=== PATIENT | female | born 1970 | race Caucasian/White ===

== ENCOUNTER → 2016-05-11 | Outpatient (CLI) | payer BC ==
--- NOTE | 2016-05-12 09:42 | MM ---
Reason for exam: screening (asymptomatic). Last mammogram was performed 1 year and 2 months ago. History: Patient had first child at age 30. Family history of breast cancer in maternal grandmother. Physical Findings: A clinical breast exam by your physician is recommended on an annual basis and results should be correlated with mammographic findings. MG 3D Screening Mammo W/Cad Bilateral CC and MLO view(s) were taken. Prior study comparison: March 03, 2015, bilateral MG 3d screening mammo w/cad. December 07, 2013, bilateral MG screening mammo w CAD. The breast tissue is extremely dense which could obscure a lesion on mammography. No significant changes when compared with prior studies. ASSESSMENT: Benign, BI-RAD 2 RECOMMENDATION: Routine screening mammogram of both breasts in 1 year.
== END | disposition home or self-care (01) ==
LOC: RADMAMWWP 11:28
PROVIDERS: ATTEND Obstetrics & Gynecology
DX: Z12.31 Encounter for screening mammogram for malignant neoplasm of breast (principal)
CPT/HCPCS: 77063; G0202

== ENCOUNTER 2017-01-14 13:50 | Emergency (ER) | payer BC ==
[2017-01-14 14:46] LABS: Basophils % (A) 0 %; CH 27.9; CHCM 31.5; Eosinophils # (A) 0.1 k/uL (0-0.7); Eosinophils % (A) 1 %; HCT 43.4 % (34.0-46.0); HDW 2.26; HGB 13.3 gm/dL (11.4-16.0); Luc # (Auto) 0.19; Luc % (Auto) 2; Lymphocytes % (A) 26 %; MCH 27.4 pg (25.0-35.0); MCHC 30.6 g/dL (31.0-37.0); MCV 89.3 fL (80.0-100.0); Mean Platelet Volume 8.1; Monocytes # (A) 0.5 k/uL (0-1.0); Monocytes % (A) 6 %; Neutrophils # (A) 4.9 k/uL (1.3-7.7); Neutrophils % (A) 64 %; RBC 4.86 m/uL (3.80-5.40); RDW 14.9 % (11.5-15.5); WBC 7.6 k/uL (3.8-10.6); WBC (Perox) 7.84
--- NOTE | 2017-01-14 14:55 | XR ---
EXAMINATION TYPE: XR chest 2V DATE OF EXAM: 01/14/2017 COMPARISON: NONE TECHNIQUE: PA and lateral views submitted. HISTORY: Pain FINDINGS: The lungs are clear and there is no pneumothorax, pleural effusion, or focal pneumonia. Degenerativ e change of the spine. IMPRESSION: 1. No acute process.
[2017-01-14 14:59] LABS: ALT 24 U/L (9-52); AST 23 U/L (14-36); Alkaline Phosphatase 75 U/L (38-126); Anion Gap 10 mmol/L; Blood Urea Nitrogen 8 mg/dL (7-17); Calcium 9.9 mg/dL (8.4-10.2); Carbon Dioxide 21 mmol/L (22-30); Chloride 107 mmol/L (98-107); Glucose 94 mg/dL (74-99); Non-African American GFR(MDRD) >60 (>60 ml/min/1.73 sqM); Potassium 4.1 mmol/L (3.5-5.1); Sodium 138 mmol/L (137-145); Total Bilirubin 0.3 mg/dL (0.2-1.3); Total Protein 7.9 g/dL (6.3-8.2)
[2017-01-14 15:11] VITALS: RESP 18
[2017-01-14 15:14] LABS: Creatine Kinase 105 U/L (30-135)
[2017-01-14 15:26] LABS: Creatine Kinase MB 0.5 ng/mL (0.0-2.4); Troponin I <0.012 ng/mL (0.000-0.034)
[2017-01-14 16:23] VITALS: BP 140/78; PULSE 68; TEMP 99
[2017-01-14] MEDS ORDERED: ASPIRIN 325 MG TAB PO STA (16:54)
--- NOTE | 2017-01-14 16:57 | ED ---
General Adult HPI - General Chief complaint: Chest Pain Stated complaint: chest pain-sent by simfy Time Seen by Provider: 01/14/17 14:09 Source: patient, RN notes reviewed Mode of arrival: wheelchair Limitations: no limitations - History of Present Illness Initial comments: 46-year-old female with known history of coronary artery disease presents with a three-day history of left-sided chest pain. Patient states his pain is deep, describes it as a pressure. Radiates into her left shoulder and arm pit. Patient has remote history of tobacco use. Denies any nausea or vomiting. Denies any diaphoresis. Pain has been constant for 3 days. Patient has a family history of coronary artery disease including her mother who at the age of 55. Patient is not currently on any medications. - Related Data Home Medications Medication Instructions Recorded Confirmed Albuterol Inhaler [Ventolin Hfa 1 - 2 puff INHALATION RT-QID PRN 01/14/17 Inhaler] Ferrous Sulfate [Slow Fe] 142 mg PO DAILY 01/14/17 01/14/17 Allergies Allergy/AdvReac Type Severity Reaction Status Date / Time No Known Allergies Allergy Verified 01/14/17 14:36 Review of Systems ROS Statement: Those systems with pertinent positive or pertinent negative responses have been documented in the HPI. ROS Other: All systems not noted in ROS Statement are negative. Past Medical History Past Medical History: Asthma History of Any Multi-Drug Resistant Organisms: None Reported Past Surgical History: Section Additional Past Surgical History / Comment(s): 3 c sections Past Psychological History: No Psychological Hx Reported Smoking Status: Never smoker Past Alcohol Use History: None Reported, Rare Past Drug Use History: None Reported General Exam Limitations: no limitations General appearance: alert, in no apparent distress Head exam: Present: atraumatic, normocephalic Eye exam: Present: normal appearance, PERRL ENT exam: Present: normal exam Neck exam: Present: normal inspection. Absent: tenderness, meningismus Respiratory exam: Present: normal lung sounds bilaterally. Absent: respiratory distress Cardiovascular Exam: Present: regular rate, normal rhythm, normal heart sounds GI/Abdominal exam: Present: soft. Absent: distended, tenderness Extremities exam: Present: normal inspection, normal capillary refill. Absent: pedal edema Neurological exam: Present: alert, oriented X3, CN II-XII intact. Absent: motor sensory deficit Psychiatric exam: Present: normal affect, normal mood Skin exam: Present: warm, dry, intact. Absent: cyanosis, diaphoretic Course Vital Signs 01/14/17 01/14/17 01/14/17 13:52 14:22 15:11 Temperature 99.1 F 98.8 F Pulse Rate 18 L 66 Pulse Rate [ 68 Waste Handling Technician ] Respiratory 65 H 18 Rate Blood Pressure 184/104 133/81 O2 Sat by Pulse 100 96 Oximetry 01/14/17 16:22 Temperature 99.0 F Pulse Rate 68 Pulse Rate [ Waste Handling Technician ] Respiratory 18 Rate Blood Pressure 140/78 O2 Sat by Pulse 97 Oximetry EKG Findings - EKG Comments: EKG Findings:: EKG shows normal sinus rhythm, ventricular rate 62 SC interval 134, QRS duration 88, QTC 414, no ST segment elevation, no T-wave abnormality Medical Decision Making - Medical Decision Making 46-year-old female presents with 3 days of constant chest pressure. Patient does have remote history of tobacco and family history of CAD. Initial troponin is negative. Other laboratory studies are unremarkable. Chest x-ray shows no acute process. EKG is nonischemic. Given the patient's risk factors, I did discuss observation for stroke troponins and cardiology consult. Patient refuses. She would prefer to follow up with her primary care physician. Given the fact her symptoms have been constant for 3 days and her EKG is nonischemic and Troponin was negative, however the patient to be discharged home with outpatient follow-up. She promises me she will return with any change or worsening in her symptoms. She will follow-up the next several days with her primary care physician to arrange outpatient stress test and cardiology follow- up. - Lab Data Result diagrams: 01/14/17 14:25 01/14/17 14:25 Lab Results 01/14/17 01/14/17 01/14/17 Range/Units 14:25 14:25 14:25 WBC 7.6 (3.8-10.6) k/uL RBC 4.86 (3.80-5.40) m/uL Hgb 13.3 (11.4-16.0) gm/dL Hct 43.4 (34.0-46.0) % MCV 89.3 (80.0-100.0) fL MCH 27.4 (25.0-35.0) pg MCHC 30.6 L (31.0-37.0) g/dL RDW 14.9 (11.5-15.5) % Plt Count 282 (150-450) k/uL Neutrophils % 64 % Lymphocytes % 26 % Monocytes % 6 % Eosinophils % 1 % Basophils % 0 % Neutrophils # 4.9 (1.3-7.7) k/uL Lymphocytes # 2.0 (1.0-4.8) k/uL Monocytes # 0.5 (0-1.0) k/uL Eosinophils # 0.1 (0-0.7) k/uL Basophils # 0.0 (0-0.2) k/uL D-Dimer (<0.60) mg/L FEU Sodium 138 (137-145) mmol/L Potassium 4.1 (3.5-5.1) mmol/L Chloride 107 (98-107) mmol/L Carbon Dioxide 21 L (22-30) mmol/L Anion Gap 10 mmol/L BUN 8 (7-17) mg/dL Creatinine 0.72 (0.52-1.04) mg/dL Est GFR (MDRD) Af Amer >60 (>60 ml/min/1.73 sqM) Est GFR (MDRD) Non-Af >60 (>60 ml/min/1.73 sqM) Glucose 94 (74-99) mg/dL Calcium 9.9 (8.4-10.2) mg/dL Total Bilirubin 0.3 (0.2-1.3) mg/dL AST 23 (14-36) U/L ALT 24 (9-52) U/L Alkaline Phosphatase 75 (38-126) U/L Total Creatine Kinase 105 (30-135) U/L CK-MB (CK-2) 0.5 (0.0-2.4) ng/mL CK-MB (CK-2) Rel Index 0.5 Troponin I <0.012 (0.000-0.034) ng/mL Total Protein 7.9 (6.3-8.2) g/dL Albumin 4.5 (3.5-5.0) g/dL 01/14/17 Range/Units 14:25 WBC (3.8-10.6) k/uL RBC (3.80-5.40) m/uL Hgb (11.4-16.0) gm/dL Hct (34.0-46.0) % MCV (80.0-100.0) fL MCH (25.0-35.0) pg MCHC (31.0-37.0) g/dL RDW (11.5-15.5) % Plt Count (150-450) k/uL Neutrophils % % Lymphocytes % % Monocytes % % Eosinophils % % Basophils % % Neutrophils # (1.3-7.7) k/uL Lymphocytes # (1.0-4.8) k/uL Monocytes # (0-1.0) k/uL Eosinophils # (0-0.7) k/uL Basophils # (0-0.2) k/uL D-Dimer 0.29 (<0.60) mg/L FEU Sodium (137-145) mmol/L Potassium (3.5-5.1) mmol/L Chloride (98-107) mmol/L Carbon Dioxide (22-30) mmol/L Anion Gap mmol/L BUN (7-17) mg/dL Creatinine (0.52-1.04) mg/dL Est GFR (MDRD) Af Amer (>60 ml/min/1.73 sqM) Est GFR (MDRD) Non-Af (>60 ml/min/1.73 sqM) Glucose (74-99) mg/dL Calcium (8.4-10.2) mg/dL Total Bilirubin (0.2-1.3) mg/dL AST (14-36) U/L ALT (9-52) U/L Alkaline Phosphatase (38-126) U/L Total Creatine Kinase (30-135) U/L CK-MB (CK-2) (0.0-2.4) ng/mL CK-MB (CK-2) Rel Index Troponin I (0.000-0.034) ng/mL Total Protein (6.3-8.2) g/dL Albumin (3.5-5.0) g/dL Disposition Clinical Impression: Chest pain Disposition: HOME SELF-CARE Instructions: Chest Pain (ED) Referrals: Pedrito Campbell MD [Primary Care Provider] - 1-2 days Time of Disposition: 17:10
== END 2017-01-14 17:16 | disposition home or self-care (01) ==
LOC: EC 13:50
DX: R07.89 Other chest pain (principal); M25.512 Pain in left shoulder; M79.622 Pain in left upper arm; Z87.891 Personal history of nicotine dependence; Z79.899 Other long term (current) drug therapy; Z82.49 Family history of ischemic heart disease and other diseases of the circulatory system
CPT/HCPCS: 36415; 71020; 80053; 82550; 82553; 84484; 85025; 85379; 93005; 99285

== ENCOUNTER → 2017-06-03 | Outpatient (CLI) | payer BC ==
--- NOTE | 2017-06-06 13:36 | MM ---
Reason for exam: screening (asymptomatic). Last mammogram was performed 1 year and 1 month ago. History: Patient had first child at age 30. Family history of breast cancer in maternal grandmother. Physical Findings: A clinical breast exam by your physician is recommended on an annual basis and results should be correlated with mammographic findings. MG 3D Screening Mammo W/Cad Bilateral CC and MLO view(s) were taken. Prior study comparison: May 11, 2016, bilateral MG 3d screening mammo w/cad. March 03, 2015, bilateral MG 3d screening mammo w/cad. The breast tissue is heterogeneously dense. This may lower the sensitivity of mammography. No significant changes when compared with prior studies. ASSESSMENT: Negative, BI-RAD 1 RECOMMENDATION: Routine screening mammogram of both breasts in 1 year.
== END | disposition home or self-care (01) ==
LOC: RADMAMWWP 09:23
PROVIDERS: ATTEND Obstetrics & Gynecology
DX: Z12.31 Encounter for screening mammogram for malignant neoplasm of breast (principal)
CPT/HCPCS: 77063; 77067

== ENCOUNTER → 2018-09-12 | Outpatient (CLI) | payer BC ==
--- NOTE | 2018-09-13 10:51 | MM ---
Reason for exam: screening (asymptomatic). Last mammogram was performed 1 year and 3 months ago. History: Patient had first child at age 30. Family history of breast cancer in maternal grandmother. Physical Findings: A clinical breast exam by your physician is recommended on an annual basis and results should be correlated with mammographic findings. MG 3D Screening Mammo W/Cad Bilateral CC and MLO view(s) were taken. Prior study comparison: June 03, 2017, bilateral MG 3d screening mammo w/cad. May 11, 2016, bilateral MG 3d screening mammo w/cad. The breast tissue is heterogeneously dense. This may lower the sensitivity of mammography. There is no discrete abnormality. No significant changes when compared with prior studies. ASSESSMENT: Negative, BI-RAD 1 RECOMMENDATION: Routine screening mammogram of both breasts in 1 year.
== END | disposition home or self-care (01) ==
LOC: RADMAMWWP 08:54
PROVIDERS: ATTEND Obstetrics & Gynecology
DX: Z12.31 Encounter for screening mammogram for malignant neoplasm of breast (principal)
CPT/HCPCS: 77063; 77067

== ENCOUNTER 2020-02-21 01:56 | Emergency (ER) | payer BC ==
[2020-02-21 02:03] VITALS: TEMP 98.9
[2020-02-21] MEDS ORDERED: HYDROmorphone 1 MG/ML 1 ML SYRINGE IM STA (02:08)
[2020-02-21] MEDS ORDERED: IBUPROFEN 800 MG TAB PO STA (02:08)
[2020-02-21] MEDS ORDERED: ACETAMINOPHEN TAB 500 MG TAB PO STA (02:08)
--- NOTE | 2020-02-21 02:13 | ED ---
Lower Extremity Injury HPI - General Chief Complaint: Extremity Injury, Lower Stated Complaint: RT ankle injury Time Seen by Provider: 02/21/20 02:05 Source: patient, family, RN notes reviewed, old records reviewed Mode of arrival: wheelchair Limitations: language barrier - History of Present Illness Initial Comments: This is a 49-year-old female DF status post trip and fall tonight. Patient had a trip and fall resulting in severe right ankle pain and deformity. Patient has no other injuries from this fall. Patient ER for evaluation regarding the right ankle pain. Blood thinners no other complaints MD Complaint: ankle injury (right) -: hour(s) Injury: Ankle: Right Type of Injury: blunt, inversion Place: home Severity: severe Severity scale (1-10): 10 Improves With: nothing Worsens With: weight bearing, movement, palpation Context: fall, direct blow Associated Symptoms: snap/pop sensation, swelling, unable to bear weight - Related Data Home Medications Medication Instructions Recorded Confirmed Albuterol Inhaler (Mhu) [Ventolin 1 - 2 puff INHALATION RT-QID PRN 01/14/17 01/14/17 Hfa Inhaler] Ferrous Sulfate [Slow Fe] 142 mg PO DAILY 01/14/17 01/14/17 Allergies Allergy/AdvReac Type Severity Reaction Status Date / Time No Known Allergies Allergy Verified 02/21/20 02:03 Review of Systems ROS Statement: Those systems with pertinent positive or pertinent negative responses have been documented in the HPI. ROS Other: All systems not noted in ROS Statement are negative. Past Medical History Past Medical History: Asthma History of Any Multi-Drug Resistant Organisms: None Reported Past Surgical History: Section Additional Past Surgical History / Comment(s): 3 c sections Past Psychological History: No Psychological Hx Reported Smoking Status: Never smoker Past Alcohol Use History: None Reported, Rare Past Drug Use History: None Reported General Exam - General Exam Comments Initial Comments: deformity and dislocation w likely fracture Right ankle Limitations: language barrier General appearance: alert, in no apparent distress Head exam: Present: atraumatic, normocephalic, normal inspection Eye exam: Present: normal appearance, PERRL, EOMI. Absent: scleral icterus, conjunctival injection, periorbital swelling ENT exam: Present: normal exam, mucous membranes moist Neck exam: Present: normal inspection. Absent: tenderness, meningismus, lymphadenopathy Respiratory exam: Present: normal lung sounds bilaterally. Absent: respiratory distress, wheezes, rales, rhonchi, stridor Cardiovascular Exam: Present: regular rate, normal rhythm, normal heart sounds. Absent: systolic murmur, diastolic murmur, rubs, gallop, clicks GI/Abdominal exam: Present: soft, normal bowel sounds. Absent: distended, tenderness, guarding, rebound, rigid Extremities exam: Present: normal inspection, full ROM, normal capillary refill. Absent: tenderness, pedal edema, joint swelling, calf tenderness Back exam: Present: normal inspection Neurological exam: Present: alert, oriented X3, CN II-XII intact Psychiatric exam: Present: normal affect, normal mood Skin exam: Present: warm, dry, intact, normal color. Absent: rash Course Vital Signs 02/21/20 02/21/20 01:59 03:09 Temperature 98.9 F Pulse Rate 114 H 76 Respiratory 18 19 Rate Blood Pressure 182/91 114/84 O2 Sat by Pulse 98 96 Oximetry - Reevaluation(s) Reevaluation #1: medical record is reviewed nausea with pain medication ankle is reduced without difficulty patient has symptoms resolved and feeling better patient is informed of results and ok for discharge Procedures - Orthopedic Fracture Reduction Fracture #1 Consent Obtained: verbal consent Side: right Fracture Reduction Location: tibia, fibula Technique: direct manipulation, traction/counter-traction Post Reduction X-rays Demonstrate: anatomical reduction Post-Reduction Neuro Exam: intact Post-Reduction Vascular Exam: intact Splint Applied: Yes Patient Tolerated Procedure: well - Orthopedic Joint Reduction Joint #1 Consent Obtained: verbal consent Side: right Joint Reduction Location: ankle Technique Used: traction/counter-traction Post-Reduction Neuro Exam: intact Post-Reduction Vascular Exam: intact Post Reduction X-Ray Obtained: Yes Post Reduction X-Ray Results: reduced Splint Applied: Yes Patient Tolerated Procedure: well Medical Decision Making - Medical Decision Making 49 female with fracture dislocation right ankle reduced here in the ER splinted and patient can be discharged home - Radiology Data Radiology results: report reviewed (X-ray right ankle shows low reduced right ankle), image reviewed Disposition Clinical Impression: Fall, Closed right ankle fracture, Dislocation of right ankle joint Disposition: HOME SELF-CARE Condition: Good Instructions (If sedation given, give patient instructions): Ankle Fracture (ED), Ankle Dislocation (ED) Is patient prescribed a controlled substance at d/c from ED?: No Referrals: Pedrito Campbell MD [Primary Care Provider] - 1-2 days
--- NOTE | 2020-02-21 02:26 | XR ---
EXAM: XR Right Ankle Complete, 2 Views CLINICAL HISTORY: ITS.REASON XR Reason: fall TECHNIQUE: Frontal, lateral views of the right ankle. COMPARISON: No relevant prior studies available. FINDINGS: Bones/joints: Oblique fracture of distal fibula with 4 mm posterior displacement. Horizontal fracture of medial malleolus with 3 mm distal displacement. No dislocation. Suspect associated small ankle mortise joint effusion. Subcentimeter accessory ossicle near cuboid Soft tissues: Associated moderate soft tissue swelling. IMPRESSION: 1. Oblique fracture of distal fibula with 4 mm posterior displacement. 2. Horizontal fracture of medial malleolus with 3 mm distal displacement.
[2020-02-21] MEDS ORDERED: Acetaminophen-Codeine 300-30mg TAB PO STA (02:50)
[2020-02-21] MEDS ORDERED: ACET/COD 300 MG/30 MG STARTER PACK 6 TAB BTL PO STA (02:50)
[2020-02-21] MEDS ORDERED: ONDANSETRON ODT 4 MG TAB PO STA (03:01)
[2020-02-21 03:10] VITALS: BP 114/84; PULSE 76; RESP 19
== END 2020-02-21 04:08 | disposition home or self-care (01) ==
LOC: EC 01:56
DX: S82.831A Other fracture of upper and lower end of right fibula, initial encounter for closed fracture (principal); S82.51XA Displaced fracture of medial malleolus of right tibia, initial encounter for closed fracture; J45.909 Unspecified asthma, uncomplicated; Z79.899 Other long term (current) drug therapy; W01.0XXA Fall on same level from slipping, tripping and stumbling without subsequent striking against object, initial encounter; Y92.009 Unspecified place in unspecified non-institutional (private) residence as the place of occurrence of the external cause
CPT/HCPCS: 73600; 99284; 27825; 96372; J1170

== ENCOUNTER → 2020-03-31 | Outpatient (CLI) | payer BC ==
--- NOTE | 2020-03-31 12:51 | BD ---
EXAMINATION TYPE: Axial Bone Density DATE OF EXAM: 03/31/2020 COMPARISON: NONE CLINICAL HISTORY: 49 YR OLD FEMALE.....ICD-10 CODE: N95.1 POST MENOPAUSAL Height: 60 Weight: 115 FRAX RISK QUESTIONS: Glucocorticoids (More than 3mos): YES, ASTHMA (Ex: prednisone, prednisolone, methylprednisolone, dexamethasone, and hydrocortisone). History of Fracture in Adulthood: YES Current Tobacco Use: QUIT 4 YRS AGO RISK FACTORS HISTORY OF: HX OF RT ANKLE FX JAN 2020, WITH SURGICAL REPAIR Active: IN W/C AND WALKING CAST FOR ANKLE RIGHT NOW Postmenopausal woman: YES, AT AGE 46YR OLD Hyperparathyroidism: NO Adrenal Insufficiency: NO MEDICATIONS: Prednisone or other steroids: SEASONAL ASTHMA, INHALERS AND STEROIDS FOR MANY YRS Additional Medications: LOW FE, IRON PILL, STEROIDAL DROPS FOR GLAUCOMA, TUMS , Additional History: LOW IRON, GLAUCOMA, FRACTURE TO RT ANKLE, JAN, 2020 WITH SURG. IN W/C WITH CRUTCH ES EXAM MEASUREMENTS: Bone mineral densitometry was performed using the [employer] System. Bone mineral density as measured about the Lumbar spine is: ----- L1-L4(G/cm2): 0.777 T Score Values are as follows: ----- L1: -2.3 ----- L2: -3.2 ----- L3: -4.0 ----- L4: -3.9 ----- L1-L4: -3.4 Bone mineral density FIRST BONE DENSITY......BASELINE STUDY Bone mineral density about the R hip (g/cm2): 0.735 Bone mineral density about the L hip (g/cm2): 0.793 T Score values are as follows: -----R Neck: -1.8 -----L Neck: -1.9 -----R Total: -2.2 -----L Total: -1.7 Bone mineral density FIRST BONE DENSITY....BASELINE STUDY FRAX%s: THERE IS A 15.3% CHANCE FOR A MAJOR OSTEOPOROTIC FX AND A 2.6% FOR HIP....PROBABILITY FOR F X IN 10 YRS TIME IMPRESSION: Osteopenia NOTE: T-SCORE=SD OF THE YOUNG ADULT MEAN.
--- NOTE | 2020-04-01 09:52 | MM ---
Reason for exam: screening (asymptomatic). Last mammogram was performed 1 year and 7 months ago. History: Patient had first child at age 30. Family history of breast cancer in maternal grandmother. Physical Findings: A clinical breast exam by your physician is recommended on an annual basis and results should be correlated with mammographic findings. MG 3D Screening Mammo W/Cad Bilateral CC and MLO view(s) were taken. Prior study comparison: September 12, 2018, bilateral MG 3d screening mammo w/cad. June 03, 2017, bilateral MG 3d screening mammo w/cad. The breast tissue is heterogeneously dense. This may lower the sensitivity of mammography. There is no discrete abnormality. No significant changes when compared with prior studies. ASSESSMENT: Negative, BI-RAD 1 RECOMMENDATION: Routine screening mammogram of both breasts in 1 year.
== END | disposition home or self-care (01) ==
LOC: RADMAMWWP 09:42
PROVIDERS: ATTEND Obstetrics & Gynecology
DX: Z12.31 Encounter for screening mammogram for malignant neoplasm of breast (principal); M85.80 Other specified disorders of bone density and structure, unspecified site
CPT/HCPCS: 77063; 77067; 77080

== ENCOUNTER → 2021-04-09 | Outpatient (CLI) | payer BC ==
--- NOTE | 2021-04-13 09:20 | MM ---
Reason for exam: screening (asymptomatic). Last mammogram was performed 1 year ago. History: Patient had first child at age 30. Family history of breast cancer in maternal grandmother. Physical Findings: A clinical breast exam by your physician is recommended on an annual basis and results should be correlated with mammographic findings. MG 3D Screening Mammo W/Cad Bilateral CC and MLO view(s) were taken. Prior study comparison: March 31, 2020, bilateral MG 3d screening mammo w/cad. September 12, 2018, bilateral MG 3d screening mammo w/cad. The breast tissue is heterogeneously dense. This may lower the sensitivity of mammography. No significant changes when compared with prior studies. ASSESSMENT: Benign, BI-RAD 2 RECOMMENDATION: Routine screening mammogram of both breasts in 1 year.
== END | disposition home or self-care (01) ==
LOC: RADMAMWWP 11:56
PROVIDERS: ATTEND Obstetrics & Gynecology
DX: Z12.31 Encounter for screening mammogram for malignant neoplasm of breast (principal); Z80.3 Family history of malignant neoplasm of breast
CPT/HCPCS: 77063; 77067

== ENCOUNTER → 2021-04-30 | Outpatient (CLI) | payer BC ==
--- NOTE | 2021-05-01 07:23 | US ---
EXAMINATION TYPE: US abdomen complete DATE OF EXAM: 04/30/2021 COMPARISON: NONE CLINICAL HISTORY: K85.80 OTHER ACUTE PANCREATITIS WITHOUT NECROSIS O. EXAM MEASUREMENTS: Liver Length: 10.5 cm Gallbladder Wall: 0.2 cm CBD: 0.5 cm Spleen: 7.5 cm Right Kidney: 9.9 x 3.5 x 4.5 cm Left Kidney: 9.1 x 4.1 x 4.3 cm Pancreas: portions visualized wnl Liver: hyperechoic area measuring 2.2 x 1.6 x 1.9cm Gallbladder: several echogenic foci appears to be attached to chan, largest measuring 0.6 x 0.4 x 0. 4cm Evidence for sonographic Osborn's sign: no CBD: wnl Spleen: wnl Right Kidney: wnl Left Kidney: several parapelvic cysts noted largest measuring 1.6 x 1.0 x 1.3cm Upper IVC: wnl Abd Aorta: mostly obscured by overlying bowel gas. The intrahepatic portion of the IVC and proximal abdominal aorta are within normal limits. Common bi le duct is unremarkable. The visualized portions of the pancreas are homogenous. The spleen is unre markable. Kidneys are symmetric and free of hydronephrosis. IMPRESSION: 1. Renal parapelvic cysts on the left. 2. Cholelithiasis. 3. Possible hemangioma which can be confirmed with CT.
== END | disposition home or self-care (01) ==
LOC: RADUSWWP 16:07
PROVIDERS: ATTEND Internal Medicine
DX: K80.20 Calculus of gallbladder without cholecystitis without obstruction (principal); N94.89 Other specified conditions associated with female genital organs and menstrual cycle
CPT/HCPCS: 76700

== ENCOUNTER → 2021-05-13 | Outpatient (CLI) | payer BC ==
--- NOTE | 2021-05-13 09:35 | NM ---
EXAMINATION TYPE: NM hepatobiliary w EF DATE OF EXAM: 05/13/2021 COMPARISON: NONE HISTORY: K80.20 Gallstones TECHNIQUE: After the intravenous administration of 4.7 mCi Tc 99m Mebrofenin hepatobiliary scintigrap hy is performed. Immediate images post injection. FINDINGS: There is satisfactory initial accumulation of tracer by the liver. The gallbladder is visualized wit hin 10 minutes. The small bowel activity is noted within 22 minutes. At one hour 8 ounces of oral e nsure plus is given to mimic CCK and gallbladder ejection fraction is calculated at 15%. IMPRESSION: Diminished gallbladder ejection fraction may reflect chronic cholecystitis and/or biliary dyskinesia.
== END | disposition home or self-care (01) ==
LOC: RADNMMAIN 07:01
PROVIDERS: ATTEND Internal Medicine
DX: K80.20 Calculus of gallbladder without cholecystitis without obstruction (principal)
CPT/HCPCS: 78226; A9537

== ENCOUNTER 2021-05-27 06:19 | Day surgery (SDC) | payer BC ==
[2021-05-22 14:56] VITALS: BMI 27.0
[~2021-05-27 06:19] MED LIST: LACTATED RINGERS 1,000 ML IV SCH
[2021-05-27 06:52] VITALS: TEMP 97.4
[2021-05-27] MEDS ORDERED: PROPOFOL 10 MG/ML 20 ML VIAL IV ONE (07:02)
--- NOTE | 2021-05-27 07:22 | P.PCN ---
Date of Procedure: 05/27/21 Procedure(s) Performed: Brief history: Patient is a pleasant 50-year-old female scheduled for an elective upper endoscopy as well as colonoscopy as a part of evaluation of GERD and screening for colon cancer. Procedure performed: Esophagogastroduodenoscopy with biopsy Colonoscopy Preoperative diagnosis: GERD Screening for colon cancer Anesthesia: [facility] [place] Procedure: After informed consent was obtained from the patient was brought into the endoscopy unit and IV sedation was administered by anesthesia under continuous monitoring. Initially upper endoscopy was done. The Olympus GF 160 video endoscope was inserted inserted into the mouth and esophagus intubated without any difficulty and was gradually advanced into the stomach and duodenum and carefully examined. The bulb and second part of the duodenum appeared normal. The scope was then withdrawn into the stomach adequately insufflated with air and upon careful examination the antrum had patchy areas of erythema which was biopsied. The body, cardia and fundus appeared normal. The scope was then withdrawn into the esophagus. The GE junction was located at 36 cm to the incisors. small hiatal hernia noted. It appeared regular withsuperficial erosions at the distal esophagus consistent with LA grade B reflux esophagitis.Rest of the esophagus appeared normal. Patient tolerated the procedure well. At this time the patient continued to remain sedation. Initial digital rectal examination was normal. Olympus CF 160 video colonoscope was then inserted into the rectum and gradually advanced to the cecum without any difficulty. Careful examination was performed as the scope was gradually being withdrawn. The prep was excellent. The cecum, ascending colon, transverse colon, descending colon, sigmoid colon and rectum appeared normal. Retroflexion was performed in the rectum and no lesions were noted. Patient tolerated the procedure well. Impression: 1. Upper endoscopy revealed LA grade B reflux esophagitis, small hiatal hernia and mild antral gastritis 2. Colonoscopy was within normal limits with no evidence of colorectal neoplasia Recommendations: Findings of this examination were discussed with the patient as well as her family. she was advised to follow with the biopsy results. She'll be started on omeprazole 20 mg daily and was advised to take it half hour before breakfast and follow antireflux measures. She can have a repeat screening colonoscopy in 10 years.
[2021-05-27 07:48] VITALS: BP 137/89; PULSE 87; RESP 16
== END 2021-05-27 08:42 | disposition home or self-care (01) ==
LOC: ORWHC2ENDO 06:19
PROVIDERS: ATTEND Internal Medicine Gastroenterology
DX: K21.00 Gastro-esophageal reflux disease with esophagitis, without bleeding (principal); K29.50 Unspecified chronic gastritis without bleeding; K44.9 Diaphragmatic hernia without obstruction or gangrene; Z12.11 Encounter for screening for malignant neoplasm of colon
CPT/HCPCS: 43239; 88305; G0121; J2704

== ENCOUNTER → 2021-07-02 | Outpatient (CLI) | payer BC ==
--- NOTE | 2021-07-02 09:14 | CT ---
EXAMINATION TYPE: CT abdomen wo/w con DATE OF EXAM: 07/02/2021 COMPARISON: Ultrasound 04/30/2021 HISTORY: Hemangioma CT DLP: 782.7 mGycm CONTRAST: CT scan of the abdomen is performed with Oral Contrast and without and with IV Contrast, patient inje cted with 100 mL of Isovue 300. FINDINGS: LUNG BASES-: No visible nodule. No infiltrate. LIVER/GB: No calcified gallstones. There is an enhancing mass at the dome of the liver posterior se gment right hepatic lobe which measures 3.5 x 3.3 cm. There is central linear area of decreased atten uation. Delayed images demonstrate complete fill in and the mass is compatible with a hemangioma. No additional masses are seen at this time. Biliary tree is of normal caliber. PANCREAS: No inflammation. No distinct mass. SPLEEN: No splenic enlargement. No lesion seen. ADRENALS: No nodule. No thickening. KIDNEYS/BLADDER: No hydronephrosis. No nephrolithiasis. No distinct renal mass. Urinary bladder g rossly unremarkable. BOWEL: Visualized bowel loops appear to be of normal caliber. LYMPH NODES: No greater than 1cm abdominal or pelvic lymph nodes are appreciated. AORTA: No significant abnormality. OSSEOUS STRUCTURES: No significant abnormality is seen. OTHER: No significant additional abnormality is seen. IMPRESSION: 1. Confirmation of the hepatic hemangioma.
== END | disposition home or self-care (01) ==
LOC: RADCTMAIN 07:54
PROVIDERS: ATTEND Internal Medicine
DX: D18.03 Hemangioma of intra-abdominal structures (principal)
CPT/HCPCS: 74170; Q9967

== ENCOUNTER → 2022-05-25 | Outpatient (CLI) | payer BC ==
--- NOTE | 2022-05-25 10:57 | BD ---
EXAMINATION TYPE: Axial Bone Density DATE OF EXAM: 05/25/2022 CLINICAL HISTORY: 51 years old Female. ICD-10 CODE: M85.88 OSTEOPENIA Comparison: Prior bone scan March 31, 2020 Height: 57.5 Weight: 127 FRAX RISK QUESTIONS: History of Fracture in Adulthood: yes rt ankle 2020 Secondary Osteoporosis: no Rheumatoid Arthritis: no RISK FACTORS HISTORY OF: Family History of Osteoporosis: no Active: yes Diet low in dairy products/other sources of calcium: yes Postmenopausal woman: yes Lost more than 2 inches in height since high school: no Frequent falls: no Poor Health: no MEDICATIONS: Additional Medications: yes cholesterol, reflux EXAM MEASUREMENTS: Bone mineral densitometry was performed using the [employer] System. Bone mineral density as measured about the Lumbar spine is: ----- L1-L4(G/cm2): 0.789 T Score Values are as follows: ----- L1: -2.4 ----- L2: -3.6 ----- L3: -2.9 ----- L4: -4.0 ----- L1-L4: -3.3 Z Score Values are as follows: ----- L1: -1.6 ----- L2: -2.8 ----- L3: -2.0 ----- L4: -3.2 ----- L1-L4: -2.4 Bone mineral density has: Increased 1.5% since study of: 03/31/2020 Bone mineral density about the R hip (g/cm2): 0.742 Bone mineral density about the L hip (g/cm2): 0.791 T Score values are as follows: -----R Neck: -1.9 -----L Neck: -2.2 -----R Total: -2.1 -----L Total: -1.7 Z Score values are as follows: -----R Neck: -0.9 -----L Neck: -1.1 -----R Total: -1.4 -----L Total: -1.0 Bone mineral density has: Increased 0.3% since study of: 03/31/2020 FRAX%s: The graph provided illustrates a 7.2 % chance for a major osteoporotic fx and a 1.2 % chance for the hips probability for fx in 10 years time. IMPRESSION: Osteoporosis (T Score less than -2.5) remains present. There is increased fracture risk and therapy is usually indicated based on age. Re-Screen 1-2 years. NOTE: T-SCORE=SD OF THE YOUNG ADULT MEAN.
--- NOTE | 2022-05-26 09:48 | MM ---
Reason for Exam: Screening (asymptomatic). Last mammogram was performed 1 year(s) and 1 month(s) ago. Patient History: Menarche at age 12. First Full-Term at age 30. Late child-bearing (after 30). Postmenopausal. Maternal grandmother had breast cancer. Risk Values: Ayse 5 year model risk: 1.5%. NCI Lifetime model risk: 11.8%. Prior Study Comparison: 09/12/2018 Bilateral Screening Mammogram, [facility]. 03/31/2020 Bilateral Screening Mammogram, [facility]. 04/09/2021 Bilateral Screening Mammogram, [facility]. Tissue Density: The breast tissue is heterogeneously dense. This may lower the sensitivity of mammography. Findings: Analyzed By CAD. There is no suspicious group of microcalcifications or new suspicious mass in either breast. Overall Assessment: Negative, BI-RAD 1 Management: Screening Mammogram of both breasts in 1 year. A clinical breast exam by your physician is recommended on an annual basis and results should be correlated with mammographic findings. [facility] will attempt to contact patient to return for supplemental views and ultrasound if indicated. Electronically signed and approved by: Jas Johnson DO
== END | disposition home or self-care (01) ==
LOC: RADMAMWWP 09:35
PROVIDERS: ATTEND Obstetrics & Gynecology
DX: Z12.31 Encounter for screening mammogram for malignant neoplasm of breast (principal); M81.0 Age-related osteoporosis without current pathological fracture; M85.88 Other specified disorders of bone density and structure, other site; Z78.0 Asymptomatic menopausal state; Z80.3 Family history of malignant neoplasm of breast
CPT/HCPCS: 77063; 77067; 77080

== ENCOUNTER → 2023-01-11 | Outpatient (CLI) | payer BC ==
--- NOTE | 2023-01-11 09:02 | US ---
EXAMINATION TYPE: US liver DATE OF EXAM: 01/11/2023 COMPARISON: CT abdomen and pelvis 07/02/2021, abdominal ultrasound 04/30/2021 CLINICAL INDICATION: Female, 52 years old with history of D18.03 HEMANGIOMA OF INTRA-ABDOMINAL; TECHNIQUE: Multiple sonographic images of the right upper quadrant are obtained. 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 Redemonstration of a 3.1 x 2.1 x 3.5 cm hyperdense lesion within the right hepatic lobe corresponding to known hemangioma. Previously measured 2.2 x 1.6 x 1.9 cm in prior ultra sound, previously measured 3.5 x [address] No cholelithiasis demonstrated. Multiple gallbladder p olyps identified measuring up to 5 mm. Negative sonographic Osborn sign. Common bile duct is within n ormal limits. Right kidney is unremarkable without evidence of hydronephrosis, nephrolithiasis, or so lid mass. IMPRESSION: 1. No acute process. 2. Several gallbladder polyps measuring up to 5 mm. Follow-up ultrasound in 6 months is recommended t o assess for stability. 3. Redemonstration of known hepatic hemangioma.
== END | disposition home or self-care (01) ==
LOC: RADUSWWP 08:15
PROVIDERS: ATTEND Internal Medicine
DX: D18.03 Hemangioma of intra-abdominal structures (principal); K82.4 Cholesterolosis of gallbladder
CPT/HCPCS: 76705

== ENCOUNTER → 2023-05-27 | Outpatient (CLI) | payer BC ==
--- NOTE | 2023-05-27 11:44 | MM ---
Reason for Exam: Screening (asymptomatic). Last screening mammogram was performed 12 month(s) ago. Patient History: Menarche at age 12. First Full-Term at age 30. Late child-bearing (after 30). Postmenopausal. Patient has history of breast feeding. Maternal grandmother had breast cancer. Risk Values: Ayse 5 year model risk: 1.1%. NCI Lifetime model risk: 8.2%. Prior Study Comparison: 05/11/2016 Bilateral Screening Mammogram, [facility]. 06/03/2017 Bilateral Screening Mammogram, [facility]. 09/12/2018 Bilateral Screening Mammogram, [facility]. 03/31/2020 Bilateral Screening Mammogram, [facility]. 04/09/2021 Bilateral Screening Mammogram, [facility]. 05/25/2022 Bilateral MG 3D screening mammo w/cad, [facility]. Tissue Density: The breasts are heterogeneously dense, which may obscure small masses. Findings: Analyzed By CAD. The pattern is symmetrical. Findings are stable. No suspicious groups of microcalcifications, spiculated or lobular masses, architectural distortion or other secondary signs of malignancy are mammographically apparent. Overall Assessment: Benign, BI-RAD 2 Management: Screening Mammogram of both breasts in 1 year. A negative mammogram report should not preclude additional follow up of suspicious palpable abnormalities. Patient should continue monthly self breast exam. A clinical breast exam by your physician is recommended on an annual basis and results should be correlated with mammographic findings. Electronically signed and approved by: Jairo Mccloud D.O. Radiologis
== END | disposition home or self-care (01) ==
LOC: RADMAMWWP 10:00
PROVIDERS: ATTEND Internal Medicine
DX: Z12.31 Encounter for screening mammogram for malignant neoplasm of breast (principal); Z80.3 Family history of malignant neoplasm of breast; Z78.0 Asymptomatic menopausal state
CPT/HCPCS: 77063; 77067

== ENCOUNTER → 2023-07-15 | Outpatient (CLI) | payer BC ==
--- NOTE | 2023-07-15 19:55 | NM ---
EXAMINATION TYPE: NM parathyroid WITH SPECT DATE OF EXAM: 07/15/2023 COMPARISON: NONE CLINICAL INDICATION: Female, 52 years old with history of E21.3 HYPERPARATHYROIDISM; TECHNIQUE: Following administration of 23.7 mCi Tc99m Sestamibi. Anterior projection images of the neck and ches t were obtained 10 minutes and 3 hours post injection. SPECT images of the neck and chest were obtai juan and reconstructed in three axes. FINDINGS: Thyroid tracer washout: Delayed images demonstrate near-complete tracer washout from the thyroid. Parathyroid uptake: None. The two-hour delayed images do not demonstrate any focal abnormal persisten t uptake in the region of the parathyroid glands to suggest parathyroid adenoma. Normal uptake: There is physiological tracer uptake in the salivary glands and thyroid gland. IMPRESSION: No scintigraphic evidence for parathyroid adenoma in the neck or upper chest.
== END | disposition home or self-care (01) ==
LOC: RADNMMAIN 07:34
PROVIDERS: ATTEND Internal Medicine
DX: E21.3 Hyperparathyroidism, unspecified (principal)
CPT/HCPCS: 78071; A9500

== ENCOUNTER → 2024-01-30 | Outpatient (CLI) | payer BC ==
--- NOTE | 2024-01-30 11:57 | US ---
EXAMINATION TYPE: US liver DATE OF EXAM: 01/30/2024 COMPARISON: 01/11/2023 CLINICAL INDICATION: Female, 53 years old with history of D18.03 HEMANGIOMA OF INTRA-ABDOMINAL STRUCT URES; hemangioma TECHNIQUE: Grayscale and color Doppler imaging of the right upper quadrant was performed. 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 Stable hepatic hemangioma. 2. Gallbladder polyps as noted. [facility], , 01/30/2024 11:55 AM
== END | disposition home or self-care (01) ==
LOC: RADUSWWP 08:58
PROVIDERS: ATTEND Internal Medicine
DX: D18.03 Hemangioma of intra-abdominal structures (principal); K82.4 Cholesterolosis of gallbladder
CPT/HCPCS: 76705

== ENCOUNTER → 2024-07-10 | Outpatient (CLI) | payer BC ==
--- NOTE | 2024-07-10 10:52 | MM ---
Reason for Exam: Screening (asymptomatic). Last mammogram was performed 1 year(s) and 2 month(s) ago. Patient History: Menarche at age 12. First Full-Term at age 30. Late child-bearing (after 30). Postmenopausal. Patient has history of breast feeding. Maternal grandmother had breast cancer. Risk Values: Ayse 5 year model risk: 1.1%. NCI Lifetime model risk: 8.0%. Prior Study Comparison: 06/03/2017 Bilateral Screening Mammogram, [facility]. 09/12/2018 Bilateral Screening Mammogram, [facility]. 03/31/2020 Bilateral Screening Mammogram, [facility]. 04/09/2021 Bilateral Screening Mammogram, [facility]. 05/25/2022 Bilateral MG 3D screening mammo w/cad, [facility]. 05/27/2023 Bilateral MG 3D screening mammo w/cad, [facility]. Tissue Density: The breasts are heterogeneously dense, which may obscure small masses. Findings: Analyzed By CAD. Benign-appearing bilateral axillary lymph nodes are redemonstrated. There is no suspicious group of microcalcifications or new suspicious mass in either breast. Overall Assessment: Negative, BI-RAD 1 Management: Screening Mammogram of both breasts in 1 year. . Patient should continue monthly self-breast exams. A clinical breast exam by your physician is recommended on an annual basis. This exam should not preclude additional follow-up of suspicious palpable abnormalities. Note on Ayse scores and lifetime risk: 1. A Ayse score greater than 3% is considered moderate risk. If this is the case, consider specialist referral to assess eligibility for a risk reducing agent. 2. If overall lifetime risk for the development of breast cancer is 20% or higher, the patient may qualify for future screening with alternating mammogram and breast MRI. [facility], , 07/10/2024 10:49 AM. Electronically signed and approved by: Jamal Golden M.D.
--- NOTE | 2024-07-10 10:56 | BD ---
EXAMINATION TYPE: Axial Bone Density DATE OF EXAM: 07/10/2024 CLINICAL HISTORY: 53 years old Female. ICD-10 CODE: M810 KNOW OSTEO , Additional History: Height: 58 Weight: 138 FRAX RISK QUESTIONS: Family History (Parent hip fracture): no History of Fracture in Adulthood: yes Secondary Osteoporosis: no RISK FACTORS HISTORY OF: Surgery to Spine/Hip(right/left)/Wrist (right/left): no MEDICATIONS: Thyroid Medications: no Osteoporosis Medications: yes Which medication: Fosamax How Lon years EXAM MEASUREMENTS: Bone mineral densitometry was performed using the [employer] System. Bone mineral density as measured about the Lumbar spine is: ----- L1-L4(G/cm2): 0.867 T Score Values are as follows: ----- L1: -2.0 ----- L2: -2.9 ----- L3: -3.0 ----- L4: -2.6 ----- L1-L4: -2.6 Z Score Values are as follows: ----- L1: -1.1 ----- L2: -2.1 ----- L3: -2.1 ----- L4: -1.8 ----- L1-L4: -1.8 Bone mineral density has: Increased 23.6% since study of: 04/29/2022 Bone mineral density about the R hip (g/cm2): 0.778 Bone mineral density about the L hip (g/cm2): 0.843 T Score values are as follows: -----R Neck: -1.6 -----L Neck: -2.3 -----R Total: -1.8 -----L Total: -1.3 Z Score values are as follows: -----R Neck: -0.6 -----L Neck: -1.2 -----R Total: -1.1 -----L Total: -0.6 Bone mineral density has: Increased 5.9% since study of: 05/25/2022 FRAX%s: The graph provided illustrates a 8.3% chance for a major osteoporotic fx and a 1.4% chance fo r the hips probability for fx in 10 years time. IMPRESSION: Osteoporosis (T Score less than -2.5) remains present. There is increased fracture risk and therapy is usually indicated based on age. Re-Screen 1-2 years. NOTE: T-SCORE=SD OF THE YOUNG ADULT MEAN. [facility], , 07/10/2024 10:54 AM
== END | disposition home or self-care (01) ==
LOC: RADBDWWP 09:05
PROVIDERS: ATTEND Obstetrics & Gynecology
DX: Z12.31 Encounter for screening mammogram for malignant neoplasm of breast (principal); M81.0 Age-related osteoporosis without current pathological fracture; R92.333 Mammographic heterogeneous density, bilateral breasts; Z78.0 Asymptomatic menopausal state; Z80.3 Family history of malignant neoplasm of breast
CPT/HCPCS: 77063; 77067; 77080